=== PATIENT | male | born 1965 | race Hispanic/Latino ===

== ENCOUNTER → 2018-01-25 | Outpatient (CLI) | payer OTHER ==
--- NOTE | 2018-01-25 11:31 | Diagnostic Imaging Report ---
TECHNIQUE: Magnetic resonance imaging of the RIGHT SHOULDER was performed WITHOUT injected contrast. COMPARISON: None available. HISTORY: Shoulder pain FINDINGS: MUSCLES AND TENDONS: Rotator Cuff: Tendons: Partial-thickness articular sided tearing of the supraspinatus tendon with probable full-thickness perforation of the anterior fibers at the humeral insertion. Deep fiber retraction of 1.5 cm. Muscles: No focal muscle atrophy. Biceps Tendon: The long head of the biceps tendon is intact and within the intertubercular groove. GLENOHUMERAL JOINT: Glenoid Labrum: No displaced tear. Articular Cartilage: No focal defect. AC JOINT AND ACROMION: No hypertrophic degenerative changes of the acromioclavicular joint. Mild subacromial spurring. BONE: No acute fracture. SOFT TISSUES: Mild subacromial subdeltoid bursal fluid. IMPRESSION: Supraspinatous partial thickness articular sided tearing with probable full-thickness perforation of the anterior fibers. Mild retraction of the deep fibers. No atrophy. Signed by: Dr. Leon Kim M.D. on 01/25/2018 11:28 AM
== END ==
LOC: MRI 09:19
PROVIDERS: ATTEND Internal Medicine
DX: S43.431A Superior glenoid labrum lesion of right shoulder, initial encounter (principal)